=== PATIENT | male | born 1960 | race Caucasian/White ===

== ENCOUNTER 2022-02-22 16:54 | Emergency (ER) | payer MEDICARE, OTHER, SELFPAY ==
[2022-02-22 17:05] VITALS: BP 160/93; PULSE 67; RESP 18; TEMP 36.5; O2SAT 100
[2022-02-22 17:08] VITALS: BP 160/93; PULSE 67; RESP 18; TEMP 36.5; O2SAT 100
--- NOTE | 2022-02-22 17:17 | ED.EYEPROB ---
HPI - Eye Problem General Chief complaint: Eye Problems Stated complaint: Rt Eye Irritation Time Seen by Provider: 02/22/22 17:10 Source: patient Mode of arrival: ambulatory Limitations: no limitations History of Present Illness HPI Narrative: Aiden is a 61-year-old male patient presenting to the clinic today with complaints of right eye being bloodshot. He reports no pain or visual changes in the right eye. He denies any injury or foreign body in the right eye. Related Data Home Medications Medication Instructions Recorded Confirmed aspirin 81 mg tablet,delayed 81 mg PO DAILY 01/06/19 02/22/22 release cholecalciferol (vitamin D3) 50 50 mcg PO DAILY 01/06/19 02/22/22 mcg (2,000 unit) capsule famotidine 20 mg tablet 20 mg PO DAILY 10/31/21 02/22/22 mycophenolate sodium 360 mg 360 mg PO BID 10/31/21 02/22/22 tablet,delayed release (Myfortic) prednisone 5 mg tablet 5 mg PO DAILY 10/31/21 02/22/22 sulfamethoxazole 800 1 tablet PO DAILY 10/31/21 02/22/22 mg-trimethoprim 160 mg tablet (Bactrim DS) tacrolimus 1 mg tablet,extended 1 mg PO DAILY 10/31/21 02/22/22 release 24 hr (Envarsus XR) carvedilol 6.25 mg tablet 6.25 mg PO BID 02/22/22 02/22/22 Allergies Allergy/AdvReac Type Severity Reaction Status Date / Time dobutamine Allergy Severe Migraine Verified 02/22/22 17:05 Review of Systems Review of Systems: Pertinent positives per HPI. Patient denies any fever, chills, rash, headache, visual changes, dizziness, cough, runny nose, sore throat, shortness of breath, chest pain, palpitations, nausea, vomiting, diarrhea, constipation, abdominal pain, or any urinary issues. PMFSH Surgical History Surgical History S/P kidney transplant S/P total hip arthroplasty right Family History Family History Father Family history of coronary artery disease Social History Social History Smoking status: Never smoker Alcohol intake: never Substance use: never Gender identity (if verbalized by the patient): Male Sexual Orientation (if Verbalized by the Patient): Straight or Heterosexual Spiritual care concerns: No Comments At the time of my signature, I reviewed and agree with the nursing past medical, surgical, social, and family history. There is no relevant family history pertinent to the patient complaint. Exam Narrative: General: Well-developed, well nourished, in no apparent distress Head: Normocephalic, atraumatic Eyes: Pupils equally round and reactive to light bilaterally, EOM intact, left sclera and conjunctive clear, right sclera with subconjunctival hemorrhage around the iris medially, small area laterally, no discharge, lids normal Ears: TMs intact and clear, ear canals clear, no drainage, grossly hearing normal. Nose: Nares patent, no discharge, no inflammation, no sinus tenderness. Mouth: Oropharynx without lesions or masses, good dentition, MMM. Neck: Supple, trachea midline, no enlargement of anterior or posterior cervical nodes, no thyroid masses or goiter palpable. Cardio: Regular rate and rhythm, s1 and s2 normal, no murmur appreciated. Resp: Clear to auscultation bilaterally anteriorly and posteriorly, no rhonchi, rales, wheezing or rubs Course Course Emergency Course: Portions of this record may have been created with voice recognition software. Level of Care: Express Care Visit Vital Signs Vital signs: Vital Signs Temperature 36.5 C 02/22/22 17:05 Pulse Rate 67 02/22/22 17:05 Respiratory Rate 18 02/22/22 17:05 Blood Pressure 160/93 H 02/22/22 17:05 Pulse Oximetry 100 02/22/22 17:05 Oxygen Delivery Room Air 02/22/22 17:05 Temperature 36.5 C 02/22/22 17:08 Pulse Rate 67 02/22/22 17:08 Respiratory Rate 18 02/22/22 17:08 Blood Pressure 160/93 H 02/22/22
== END 2022-02-22 17:21 | disposition home or self-care (01) ==
PROVIDERS: Emergency Provider Nurse Practitioner Family; PCP Family Medicine
DX: H11.31 Conjunctival hemorrhage, right eye (principal); Z94.0 Kidney transplant status; Z96.641 Presence of right artificial hip joint; Z79.82 Long term (current) use of aspirin
CPT/HCPCS: 99212; G0463

== ENCOUNTER 2023-03-13 09:52 | Outpatient (CLI) | payer MEDICARE, OTHER, SELFPAY ==
--- NOTE | ~2023-03-13 | XR_ITS ---
XR chest 2V DATE: 03/13/2023 10:13 INDICATION: Cough, shortness of breath, fever TECHNIQUE: PA and lateral views COMPARISON: 08/21/2017 two-view chest FINDINGS: There is chronic moderately prominent elevation of the right diaphragm. There are bibasilar infiltrates and/or atelectasis, involving the middle lobe and particularly left l ower lobe. There is patchy high density, apparently calcification, overlying the posterior right upper quadrant. CT abdomen examination is recommended for further evaluation. Normal heart size. Aortic arch calcification. No hilar or mediastinal enlargement is evident. No pleural effusion or pulmonary vascular congestion or pneumothorax. IMPRESSION: Patchy hypodensity, probably calcification, overlying the posterior right upper quadrant; CT abdomen examination is recommended Mildly prominent chronic right diaphragmatic elevation with associated mild right basilar atelectasis Left lower lobe infiltrate and/or atelectasis Reviewed, dictated and finalized at location B. [facility] IMPRESSION: Patchy hypodensity, probably calcification, overlying the posterior right upper quadrant; CT abdomen examination is recommended Mildly prominent chronic right diaphragmatic elevation with associated mild rig ht basilar atelectasis Left lower lobe infiltrate and/or atelectasis
== END 2023-03-13 09:53 | disposition home or self-care (01) ==
PROVIDERS: PCP Family Medicine; Visit Provider Physician Assistant Medical
DX: R05.9 Cough, unspecified (principal); R09.89 Other specified symptoms and signs involving the circulatory and respiratory systems; R91.8 Other nonspecific abnormal finding of lung field
CPT/HCPCS: 71046

== ENCOUNTER 2023-05-15 00:50 | Day surgery (SDC) | payer MEDICARE, OTHER, SELFPAY ==
[2023-02-19 14:34] VITALS: BMI 24.0
--- NOTE | 2023-03-15 10:06 | SUR.PREOP ---
Patient called regarding upcoming procedure. Reviewed preop instructions, appointment times, and procedure prep.
[2023-05-06 09:32] VITALS: BMI 23.8
--- NOTE | 2023-05-13 12:29 | SUR.PREOP ---
Patient called regarding upcoming procedure. Reviewed preop instructions, appointment times, and procedure prep.
[2023-05-15 08:07] VITALS: BP 156/88; PULSE 65; RESP 18; TEMP 36.1; O2SAT 99; BMI 23.3
[2023-05-15] MEDS: LACTATED RINGERS 1,000 ML 150 ML IV CONT (08:24)
--- NOTE | 2023-05-15 08:50 | WPDANESEPPF ---
Anes - Initial Pre Proc Eval Procedure: Operation Date: 05/15/23 09:30 Proposed Procedures p Screening Colonoscopy - Diaz Zuleta MD Date/Time: 05/15/23 08:50 Surgeon: Diaz Zuleta MD Pre Op Diagnosis: neoplasm screening Patient Data Age: 62 Gender: M Height: 1.8 m Weight: 76.1 kg Last Vital Signs Temp 97.0 F L 05/15/23 08:07 Pulse 65 05/15/23 08:07 Resp 18 05/15/23 08:07 BP 156/88 H 05/15/23 08:07 Pulse Ox 99 05/15/23 08:07 O2 Del Method Room Air 05/15/23 08:07 Allergies Allergy/AdvReac Type Severity Reaction Status Date / Time dobutamine Allergy Severe Migraine Verified 05/15/23 08:15 Home Medications Medication Instructions Recorded Confirmed Type aspirin 81 mg tablet,delayed 81 mg PO DAILY 01/06/19 05/15/23 History release famotidine 20 mg tablet 20 mg PO DAILY PRN Heartburn 10/31/21 05/15/23 History tacrolimus 1 mg tablet,extended 1 mg PO DAILY 10/31/21 05/15/23 History release 24 hr (Envarsus XR) atorvastatin 20 mg tablet 20 mg PO DAILY #90 tabs 10/02/22 05/15/23 Rx carvedilol 6.25 mg tablet 12.5 mg PO BID 11/06/22 05/15/23 History cholecalciferol (vitamin D3) 50 2,000 unit PO DAILY 11/06/22 05/15/23 History mcg (2,000 unit) capsule lisinopril 2.5 mg tablet 2.5 mg PO DAILY 11/06/22 05/15/23 History Patient hx anesthesia problems: none Family hx anesthesia problems: none Results Review: All pre-operative results and documents have been reviewed as part of the pre-operative evaluation. [facility] Surgical History Surgical History S/P kidney transplant S/P total hip arthroplasty right Family History Family History Father Family history of coronary artery disease Social History Social History (Updated 03/20/23 @ 09:00 by Beverley Yeung Social History: Smoking status: Never smoker Second hand tobacco smoke exposure: No Alcohol intake: never Alcohol use details: socially Substance use: never Substance use type: does not use Do You Feel Safe in your Home?: Yes Lack of Transportation: No Lack of Food: Never True Current Housing: I Have Housing Concerned About Future Housing: No Difficulty Paying Gas/Electric Bills: No Difficulty Paying for Meds: No Currently Unemployed: No Education: Don't Know Difficulty w/ Childcare or Family Care: No Living arrangements: with family Occupation/Education: occupation Gender identity (if verbalized by the patient): Male Sexual Orientation (if Verbalized by the Patient): Straight or Heterosexual Spiritual care concerns: No Anes - Eval Final PreProcedure Day of Procedure 05/15/23 08:50 Patient weight: normal Heart: regular rate and rhythm Lungs: clear to auscultation Airway: Mallampati scale class II Neurological: alert and oriented Last oral intake: >/= 8 hours ASA classification: II Emergent: no Anesthetic plan: proceed Anesthesia type and monitoring: general GIVS and standard monitoring Results Review: All pre-operative results and documents have been reviewed as part of the pre-operative evaluation. Informed Consent: The patient's anesthetic plan and its attendant risks and benefits were discussed with the patient/family/POA. Questions were solicited and answers provided to the satisfaction of the patient/family/POA.
--- NOTE | 2023-05-15 08:50 | PM.HPGS ---
History of Present Illness History of Present Illness Consent: Risks, benefits, and alternatives have been discussed and questions answered. Patient agrees to proceed with procedure. Chief complaint: neoplasm screening Narrative: Aiden Alberto is a 62 year old male here for screening colonoscopy, last one 12 years ago Review of Systems Review of Systems: All systems reviewed & are unremarkable except as noted in HPI and below PMFSH Past Medical History Medical History (Updated 05/15/23 @ 08:51 by Diaz Zuleta MD) Colon cancer screening Surgical History Surgical History S/P kidney transplant S/P total hip arthroplasty right Family History Family History Father Family history of coronary artery disease Social History Social History (Updated 03/20/23 @ 09:00 by Beverley Manley) Social History: Smoking status: Never smoker Second hand tobacco smoke exposure: No Alcohol intake: never Alcohol use details: socially Substance use: never Substance use type: does not use Do You Feel Safe in your Home?: Yes Lack of Transportation: No Lack of Food: Never True Current Housing: I Have Housing Concerned About Future Housing: No Difficulty Paying Gas/Electric Bills: No Difficulty Paying for Meds: No Currently Unemployed: No Education: Don't Know Difficulty w/ Childcare or Family Care: No Living arrangements: with family Occupation/Education: occupation Gender identity (if verbalized by the patient): Male Sexual Orientation (if Verbalized by the Patient): Straight or Heterosexual Spiritual care concerns: No Meds Home Medications and Allergies Home Medications Medication Instructions Recorded Confirmed Type aspirin 81 mg tablet,delayed 81 mg PO DAILY 01/06/19 05/15/23 History release famotidine 20 mg tablet 20 mg PO DAILY PRN Heartburn 10/31/21 05/15/23 History tacrolimus 1 mg tablet,extended 1 mg PO DAILY 10/31/21 05/15/23 History release 24 hr (Envarsus XR) atorvastatin 20 mg tablet 20 mg PO DAILY #90 tabs 10/02/22 05/15/23 Rx carvedilol 6.25 mg tablet 12.5 mg PO BID 11/06/22 05/15/23 History cholecalciferol (vitamin D3) 50 2,000 unit PO DAILY 11/06/22 05/15/23 History mcg (2,000 unit) capsule lisinopril 2.5 mg tablet 2.5 mg PO DAILY 11/06/22 05/15/23 History Allergies Allergy/AdvReac Type Severity Reaction Status Date / Time dobutamine Allergy Severe Migraine Verified 05/15/23 08:15 Vital Signs Vital Signs - 24 hr 05/15/23 08:07 Temperature 97.0 F L Pulse Rate 65 Respiratory Rate 18 Blood Pressure 156/88 H Pulse Oximetry 99 Oxygen Delivery Room Air Exam Const: General: comfortable and no acute distress HENMT: Face/Nose/Sinus: Normal nares present Eyes: General: appearance normal, both eyes and all related structures Neck: Neck: no JVD Resp: Auscultation: clear to auscultation bilaterally Cardio: Rate: regular rate Rhythm: regular rhythm GI: Inspection: non-distended GI Palp: Yes Soft to palpation Skin: General skin exam: normal color Neuro: General: gait normal Speech: normal speech Extrem: General: normal to inspection Psych: Mental Status: mental status grossly normal Assessment and Plan Assessment and plan (1) Colon cancer screening: Code(s): Z12.11 - Encounter for screening for malignant neoplasm of colon Status: Acute Assessment and Plan: colonoscopy
[2023-05-15 09:09] VITALS: BP 92/61; PULSE 62; RESP 15; O2SAT 98
[2023-05-15 09:19] VITALS: BP 101/65; PULSE 64; RESP 24; O2SAT 99
[2023-05-15 09:29] VITALS: BP 123/82; PULSE 59; RESP 17; O2SAT 99
== END 2023-05-15 09:48 | disposition home or self-care (01) ==
PROVIDERS: PCP Family Medicine; Visit Provider Internal Medicine Gastroenterology
PROC: 0DJD8ZZ Inspection of Lower Intestinal Tract, Via Natural or Artificial Opening Endoscopic (ICD-10-PCS; CPT 45378; principal; 2023-05-15 09:30)
DX: Z12.11 Encounter for screening for malignant neoplasm of colon (principal); D12.0 Benign neoplasm of cecum; K57.30 Diverticulosis of large intestine without perforation or abscess without bleeding; Z94.0 Kidney transplant status; Z79.82 Long term (current) use of aspirin; Z79.621 Long term (current) use of calcineurin inhibitor
CPT/HCPCS: 45380; 88305; J2704; J7120

== ENCOUNTER 2024-11-11 09:00 | Outpatient (CLI) | payer OTHER, SELFPAY ==
--- NOTE | ~2024-11-11 | XR_ITS ---
EXAMINATION: XR tibia fibula RT 2V, 11/11/2024 9:10 CDT HISTORY: S89.90XA - Unspecified injury of unspecified lower leg, i... COMPARISON: No comparisons available. Findings: No acute fracture or malalignment. No significant degenerative changes. Soft tissues unremarkable. Impression: No acute fracture or malalignment. Reviewed, dictated and finalized at location P. Impression: No acute fracture or malalignment.
== END 2024-11-11 09:01 | disposition home or self-care (01) ==
PROVIDERS: PCP Family Medicine; Visit Provider Student in an Organized Health Care Education/Training Program
DX: S89.90XA Unspecified injury of unspecified lower leg, initial encounter (principal); X58.XXXA Exposure to other specified factors, initial encounter
CPT/HCPCS: 73590